=== PATIENT | male | born 1990 | race Caucasian/White ===

== ENCOUNTER 2019-08-27 16:01 | Emergency (ER) | payer BC ==
[2019-08-27] MEDS ORDERED: Morphine 10 MG/ML Syringe IVPUSH ONE ×2 (16:27→20:09)
[2019-08-27] MEDS ORDERED: Sodium Chloride 0.9% 1,000 ML IV ONE ×2 (16:27→18:48)
[2019-08-27] MEDS ORDERED: Piperacillin/Tazobactam 3.375 GM in Sodium Chloride 0.9% 50 ML IV ONE (16:28)
--- NOTE | 2019-08-27 17:36 | EDM.PDOC ---
Addendum entered and electronically signed by Tiara Amor MD 08/27/19 22 :27: EKG: st at 119 bpm. nml axis. nml intervals. no st elevation. Original Note: <Tiara Amor - Last Filed: 08/27/19 20:52> ED HPI GENERAL MEDICAL PROBLEM - General Chief Complaint: Skin Complaint Stated Complaint: INFECTION Time Seen by Provider: 08/27/19 16:08 - Related Data Allergies Allergy/AdvReac Type Severity Reaction Status Date / Time No Known Allergies Allergy Verified 08/27/19 16:13 Home Meds: Home Meds . [No Known Home Meds] 08/27/19 [History] ED ROS GENERAL - Review of Systems Review Of Systems: Comprehensive ROS is negative, except as noted in HPI. ED EXAM, SKIN/RASH Exam: See Below (see dictation) Course - Vital Signs Text/Narrative:: Care signed out to myself from Dr. Cole, please see his note for full details. He has already spoken with Dr. Lauren at [facility] at [place], transfer has been accepted, we are pending route of transfer based on CT. CT resulted and reviewed: pt with necrotizing fasciitis, will transfer by air. I spoke ER physician at [facility] to update on results. Insulin drip was started here. Transfer paperwork completed. Last Recorded V/S: Last Vital Signs Temp 36.2 C 08/27/19 20:25 Pulse 117 H 08/27/19 20:25 Resp 19 08/27/19 20:25 BP 127/61 08/27/19 20:25 Pulse Ox 96 08/27/19 20:25 - Orders/Labs/Meds Orders: Active Orders 24 hr Category Date Time Status Cardiac Monitoring [RC] CONTINUOUS Care 08/27/19 19:49 Active Communication Order [RC] STAT Care 08/27/19 19:48 Active Communication Order [RC] STAT Care 08/27/19 19:48 Active Communication Order [RC] STAT Care 08/27/19 19:48 Active Communication Order [RC] STAT Care 08/27/19 19:48 Active Communication Order [RC] STAT Care 08/27/19 19:49 Active EKG Documentation Completion [RC] STAT Care 08/27/19 20:21 Active Pelvis w Cont [CT] Stat Exams 08/27/19 16:26 Taken CULTURE BLOOD [BC] Stat Lab 08/27/19 17:16 Results CULTURE BLOOD [BC] Stat Lab 08/27/19 18:10 Received CULTURE WOUND [RM] Stat Lab 08/27/19 18:32 Received Blood Culture x2 Reflex Set [OM.PC] Stat Oth 08/27/19 17:42 Ordered Peripheral IV Insertion Adult [OM.PC] Stat Oth 08/27/19 19:49 Ordered Labs: Laboratory Tests 08/27/19 08/27/19 08/27/19 Range/Units 17:12 17:16 17:16 WBC 17.68 H (4.0-11.0) K/uL RBC 4.73 (4.50-5.90) M/uL Hgb 13.8 (13.0-17.0) g/dL Hct 39.3 (38.0-50.0) % MCV 83.1 (80.0-98.0) fL MCH 29.2 (27.0-32.0) pg MCHC 35.1 (31.0-37.0) g/dL RDW Std Deviation 42.7 (28.0-62.0) fl RDW Coeff of Ruben 14 (11.0-15.0) % Plt Count 232 (150-400) K/uL MPV 11.30 (7.40-12.00) fL Add Manual Diff YES Neutrophils % (Manual) 45 L (48.0-80.0) % Band Neutrophils % 23 % Lymphocytes % (Manual) 10 L (16.0-40.0) % Monocytes % (Manual) 19 H (0.0-15.0) % Metamyelocytes % 2 % Myelocytes % 1 % Nucleated RBC % 0.3 /100WBC Absolute Seg Neuts 8.0 H (1.4-5.7) Band Neutrophils # 4.1 Lymphocytes # (Manual) 1.8 (0.6-2.4) Monocytes # (Manual) 3.4 H (0.0-0.8) Absolute Metamyelocyte 0.4 Absolute Myelocytes 0.2 Nucleated RBCs 1 % Nucleated RBCs # 0 K/uL ESR (0-14) mm/hr VBG pH 7.47 H (7.31-7.41) VBG pCO2 30 L (35-45) mmHG VBG pO2 38 (30-40) mmHG VBG HCO3 22 (22-30) mEq/L VBG Total CO2 19 L (41-51) mmol/L VBG Base Excess -1.0 (-3.0-3.0) Lactate (0.20-2.00) mmol/L Sodium (136-148) mmol/L Potassium (3.5-5.1) mmol/L Chloride (98-107) mmol/L Carbon Dioxide (21.0-32.0) mmol/L BUN (7.0-18.0) mg/dL Creatinine (0.8-1.3) mg/dL Est Cr Clr Drug Dosing mL/min Estimated GFR (MDRD) ml/min Glucose (74-106) mg/dL POC Glucose (60-110) mg/dL Calcium (8.5-10.1) mg/dL Phosphorus (2.6-4.7) mg/dL Magnesium (1.8-2.4) mg/dL Total Bilirubin (0.2-1.0) mg/dL AST (15-37) IU/L ALT (14-63) IU/L Alkaline Phosphatase (46-116) U/L Creatine Kinase 88 (26-308) U/L C-Reactive Protein (0.00-0.90) mg/dL Total Protein (6.4-8.2) g/dL Albumin (3.4-5.0) g/dL Globulin (2.6-4.0) g/dL Albumin/Globulin Ratio (0.9-1.6) Urine Color Urine Appearance Urine pH (5.0-8.0) Ur Specific [place] (1.001-1.035) Urine Protein (NEGATIVE) mg/dL Urine Glucose (UA) (NEGATIVE) mg/dL Urine Ketones (NEGATIVE) mg/dL Urine Occult Blood (NEGATIVE) Urine Nitrite (NEGATIVE) Urine Bilirubin (NEGATIVE) Urine Urobilinogen (<2.0) EU/dL Ur Leukocyte Esterase (NEGATIVE) Urine RBC (0-2/HPF) Urine WBC (0-5/HPF) Ur Epithelial Cells (NONE-FEW) Urine Bacteria (NEGATIVE) Ketones (NEG) Blood Type Antibody Screen 08/27/19 08/27/19 08/27/19 Range/Units 17:16 17:16 17:16 WBC (4.0-11.0) K/uL RBC (4.50-5.90) M/uL Hgb (13.0-17.0) g/dL Hct (38.0-50.0) % MCV (80.0-98.0) fL MCH (27.0-32.0) pg MCHC (31.0-37.0) g/dL RDW Std Deviation (28.0-62.0) fl RDW Coeff of Ruben (11.0-15.0) % Plt Count (150-400) K/uL MPV (7.40-12.00) fL Add Manual Diff Neutrophils % (Manual) (48.0-80.0) % Band Neutrophils % % Lymphocytes % (Manual) (16.0-40.0) % Monocytes % (Manual) (0.0-15.0) % Metamyelocytes % % Myelocytes % % Nucleated RBC % /100WBC Absolute Seg Neuts (1.4-5.7) Band Neutrophils # Lymphocytes # (Manual) (0.6-2.4) Monocytes # (Manual) (0.0-0.8) Absolute Metamyelocyte Absolute Myelocytes Nucleated RBCs % Nucleated RBCs # K/uL ESR (0-14) mm/hr VBG pH (7.31-7.41) VBG pCO2 (35-45) mmHG VBG pO2 (30-40) mmHG VBG HCO3 (22-30) mEq/L VBG Total CO2 (41-51) mmol/L VBG Base Excess (-3.0-3.0) Lactate 5.7 H* (0.20-2.00) mmol/L Sodium 119 L* (136-148) mmol/L Potassium 4.9 (3.5-5.1) mmol/L Chloride 82 L (98-107) mmol/L Carbon Dioxide 19.3 L (21.0-32.0) mmol/L BUN 39 H (7.0-18.0) mg/dL Creatinine 1.3 (0.8-1.3) mg/dL Est Cr Clr Drug Dosing 86.57 mL/min Estimated GFR (MDRD) > 60.0 ml/min Glucose 521 H* (74-106) mg/dL POC Glucose (60-110) mg/dL Calcium 7.6 L (8.5-10.1) mg/dL Phosphorus (2.6-4.7) mg/dL Magnesium (1.8-2.4) mg/dL Total Bilirubin 1.1 H (0.2-1.0) mg/dL AST 62 H (15-37) IU/L ALT 40 (14-63) IU/L Alkaline Phosphatase 86 (46-116) U/L Creatine Kinase (26-308) U/L C-Reactive Protein (0.00-0.90) mg/dL Total Protein 6.2 L (6.4-8.2) g/dL Albumin 1.9 L (3.4-5.0) g/dL Globulin 4.3 H (2.6-4.0) g/dL Albumin/Globulin Ratio 0.4 L (0.9-1.6) Urine Color Urine Appearance Urine pH (5.0-8.0) Ur Specific [place] (1.001-1.035) Urine Protein (NEGATIVE) mg/dL Urine Glucose (UA) (NEGATIVE) mg/dL Urine Ketones (NEGATIVE) mg/dL Urine Occult Blood (NEGATIVE) Urine Nitrite (NEGATIVE) Urine Bilirubin (NEGATIVE) Urine Urobilinogen (<2.0) EU/dL Ur Leukocyte Esterase (NEGATIVE) Urine RBC (0-2/HPF) Urine WBC (0-5/HPF) Ur Epithelial Cells (NONE-FEW) Urine Bacteria (NEGATIVE) Ketones (NEG) Blood Type O POSITIVE Antibody Screen NEGATIVE 08/27/19 08/27/19 08/27/19 Range/Units 17:16 17:16 17:16 WBC (4.0-11.0) K/uL RBC (4.50-5.90) M/uL Hgb (13.0-17.0) g/dL Hct (38.0-50.0) % MCV (80.0-98.0) fL MCH (27.0-32.0) pg MCHC (31.0-37.0) g/dL RDW Std Deviation (28.0-62.0) fl RDW Coeff of Ruben (11.0-15.0) % Plt Count (150-400) K/uL MPV (7.40-12.00) fL Add Manual Diff Neutrophils % (Manual) (48.0-80.0) % Band Neutrophils % % Lymphocytes % (Manual) (16.0-40.0) % Monocytes % (Manual) (0.0-15.0) % Metamyelocytes % % Myelocytes % % Nucleated RBC % /100WBC Absolute Seg Neuts (1.4-5.7) Band Neutrophils # Lymphocytes # (Manual) (0.6-2.4) Monocytes # (Manual) (0.0-0.8) Absolute Metamyelocyte Absolute Myelocytes Nucleated RBCs % Nucleated RBCs # K/uL ESR 56 H (0-14) mm/hr VBG pH (7.31-7.41) VBG pCO2 (35-45) mmHG VBG pO2 (30-40) mmHG VBG HCO3 (22-30) mEq/L VBG Total CO2 (41-51) mmol/L VBG Base Excess (-3.0-3.0) Lactate (0.20-2.00) mmol/L Sodium (136-148) mmol/L Potassium (3.5-5.1) mmol/L Chloride (98-107) mmol/L Carbon Dioxide (21.0-32.0) mmol/L BUN (7.0-18.0) mg/dL Creatinine (0.8-1.3) mg/dL Est Cr Clr Drug Dosing mL/min Estimated GFR (MDRD) ml/min Glucose (74-106) mg/dL POC Glucose (60-110) mg/dL Calcium (8.5-10.1) mg/dL Phosphorus (2.6-4.7) mg/dL Magnesium (1.8-2.4) mg/dL Total Bilirubin (0.2-1.0) mg/dL AST (15-37) IU/L ALT (14-63) IU/L Alkaline Phosphatase (46-116) U/L Creatine Kinase (26-308) U/L C-Reactive Protein 20.40 H (0.00-0.90) mg/dL Total Protein (6.4-8.2) g/dL Albumin (3.4-5.0) g/dL Globulin (2.6-4.0) g/dL Albumin/Globulin Ratio (0.9-1.6) Urine Color Urine Appearance Urine pH (5.0-8.0) Ur Specific [place] (1.001-1.035) Urine Protein (NEGATIVE) mg/dL Urine Glucose (UA) (NEGATIVE) mg/dL Urine Ketones (NEGATIVE) mg/dL Urine Occult Blood (NEGATIVE) Urine Nitrite (NEGATIVE) Urine Bilirubin (NEGATIVE) Urine Urobilinogen (<2.0) EU/dL Ur Leukocyte Esterase (NEGATIVE) Urine RBC (0-2/HPF) Urine WBC (0-5/HPF) Ur Epithelial Cells (NONE-FEW) Urine Bacteria (NEGATIVE) Ketones NEGATIVE (NEG) Blood Type Antibody Screen 08/27/19 08/27/19 08/27/19 Range/Units 17:16 19:46 20:41 WBC (4.0-11.0) K/uL RBC (4.50-5.90) M/uL Hgb (13.0-17.0) g/dL Hct (38.0-50.0) % MCV (80.0-98.0) fL MCH (27.0-32.0) pg MCHC (31.0-37.0) g/dL RDW Std Deviation (28.0-62.0) fl RDW Coeff of Ruben (11.0-15.0) % Plt Count (150-400) K/uL MPV (7.40-12.00) fL Add Manual Diff Neutrophils % (Manual) (48.0-80.0) % Band Neutrophils % % Lymphocytes % (Manual) (16.0-40.0) % Monocytes % (Manual) (0.0-15.0) % Metamyelocytes % % Myelocytes % % Nucleated RBC % /100WBC Absolute Seg Neuts (1.4-5.7) Band Neutrophils # Lymphocytes # (Manual) (0.6-2.4) Monocytes # (Manual) (0.0-0.8) Absolute Metamyelocyte Absolute Myelocytes Nucleated RBCs % Nucleated RBCs # K/uL ESR (0-14) mm/hr VBG pH (7.31-7.41) VBG pCO2 (35-45) mmHG VBG pO2 (30-40) mmHG VBG HCO3 (22-30) mEq/L VBG Total CO2 (41-51) mmol/L VBG Base Excess (-3.0-3.0) Lactate (0.20-2.00) mmol/L Sodium (136-148) mmol/L Potassium (3.5-5.1) mmol/L Chloride (98-107) mmol/L Carbon Dioxide (21.0-32.0) mmol/L BUN (7.0-18.0) mg/dL Creatinine (0.8-1.3) mg/dL Est Cr Clr Drug Dosing mL/min Estimated GFR (MDRD) ml/min Glucose (74-106) mg/dL POC Glucose 444 H (60-110) mg/dL Calcium (8.5-10.1) mg/dL Phosphorus 2.6 (2.6-4.7) mg/dL Magnesium 2.7 H (1.8-2.4) mg/dL Total Bilirubin (0.2-1.0) mg/dL AST (15-37) IU/L ALT (14-63) IU/L Alkaline Phosphatase (46-116) U/L Creatine Kinase (26-308) U/L C-Reactive Protein (0.00-0.90) mg/dL Total Protein (6.4-8.2) g/dL Albumin (3.4-5.0) g/dL Globulin (2.6-4.0) g/dL Albumin/Globulin Ratio (0.9-1.6) Urine Color YELLOW Urine Appearance SLT CLOUDY Urine pH 6.0 (5.0-8.0) Ur Specific [place] <= 1.005 (1.001-1.035) Urine Protein NEGATIVE (NEGATIVE) mg/dL Urine Glucose (UA) >=1000 (NEGATIVE) mg/dL Urine Ketones TRACE H (NEGATIVE) mg/dL Urine Occult Blood LARGE H (NEGATIVE) Urine Nitrite NEGATIVE (NEGATIVE) Urine Bilirubin NEGATIVE (NEGATIVE) Urine Urobilinogen 4.0 H (<2.0) EU/dL Ur Leukocyte Esterase NEGATIVE (NEGATIVE) Urine RBC 4-7 (0-2/HPF) Urine WBC 0-2 (0-5/HPF) Ur Epithelial Cells OCCASIONAL (NONE-FEW) Urine Bacteria FEW (NEGATIVE) Ketones (NEG) Blood Type Antibody Screen Meds: Medications Discontinued Medications Generic Name Dose Route Start Last Admin Trade Name Freq PRN Reason Stop Dose Admin Sodium Chloride 1,000 mls @ 999 mls/hr 08/27/19 16:27 08/27/19 17:24 Normal Saline IV 08/27/19 17:27 999 mls/hr .BOLUS ONE Administration Clindamycin Phosphate 300 mg/ 52 mls @ 100 mls/hr 08/27/19 16:28 08/27/19 19: 29 Sodium Chloride IV 08/27/19 16:59 100 mls/hr ONETIME ONE Administration Piperacillin Sod/Tazobactam 50 mls @ 100 mls/hr 08/27/19 16:28 08/27/19 17:24 Sod 3.375 gm/ Sodium Chloride IV 08/27/19 16:57 100 mls/hr ONETIME ONE Administration Vancomycin HCl 1.5 gm/ Sodium 250 mls @ 167 mls/hr 08/27/19 16:27 08/27/19 20 :18 Chloride IV 08/27/19 17:56 167 mls/hr ONETIME ONE Administration Sodium Chloride 1,000 mls @ 999 mls/hr 08/27/19 18:48 08/27/19 20:22 Normal Saline IV 08/27/19 19:48 999 mls/hr .BOLUS ONE Administration Insulin Human Regular 100 unit 100 mls @ 16.32 mls/hr 08/27/19 20:00 20:41 / Sodium Chloride IV 0.1 units/kg/hr TITRATE NGOC 16.32 mls/hr Administration Protocol 0.1 UNITS/KG/HR Iopamidol 100 ml 08/27/19 19:25 08/27/19 19:25 Isovue Multipack-370 (76%) IVPUSH 08/27/19 19:26 100 ml ONETIME ONE Administration Morphine Sulfate 8 mg 08/27/19 16:27 08/27/19 18:18 Morphine IVPUSH 08/27/19 16:28 8 mg ONETIME ONE Administration Morphine Sulfate 6 mg 08/27/19 20:09 08/27/19 20:16 Morphine IVPUSH 08/27/19 20:10 6 mg ONETIME ONE Administration Sodium Chloride 10 ml 08/27/19 19:49 Saline Flush FLUSH ASDIRECTED PRN Keep Vein Open Sodium Chloride 2.5 ml 08/27/19 19:49 Saline Flush FLUSH ASDIRECTED PRN Keep Vein Open Sodium Chloride 10 ml 08/27/19 19:49 Normal Saline IV ASDIRECTED PRN IV Use Departure - Departure Time of Disposition: 20:52 Disposition: DC/Tfer to Acute Hospital 02 Condition: Serious Clinical Impression: Necrotizing fasciitis, Hyperglycemia due to type 2 diabetes mellitus - Discharge Information Referrals: PCP,None [Primary Care Provider] - Forms: ED Department Discharge Sepsis Event Note - Focused Exam Vital Signs: Vital Signs Temp Pulse Resp BP Pulse Ox 08/27/19 20:25 36.2 C 117 H 19 127/61 96 08/27/19 19:52 117 H 22 H 115/71 96 Date Exam was Performed: 08/27/19 Time Exam was Performed: 20:52 - My Orders Last 24 Hours: My Active Orders 08/27/19 16:26 Pelvis w Cont [CT] Stat 08/27/19 17:16 CULTURE BLOOD [BC] Stat 08/27/19 17:42 Blood Culture x2 Reflex Set [OM.PC] Stat 08/27/19 18:10 CULTURE BLOOD [BC] Stat 08/27/19 18:32 CULTURE WOUND [RM] Stat - Assessment/Plan Last 24 Hours: My Active Orders 08/27/19 16:26 Pelvis w Cont [CT] Stat 08/27/19 17:16 CULTURE BLOOD [BC] Stat 08/27/19 17:42 Blood Culture x2 Reflex Set [OM.PC] Stat 08/27/19 18:10 CULTURE BLOOD [BC] Stat 08/27/19 18:32 CULTURE WOUND [RM] Stat <Ashu Cole - Last Filed: 08/28/19 07:32> ED HPI GENERAL MEDICAL PROBLEM - General Source of Information: Reports: Patient History Limitations: Reports: No Limitations - History of Present Illness INITIAL COMMENTS - FREE TEXT/NARRATIVE: Patient is a 28-year-old male with a history of morbid obesity presenting with a chief complaint of right leg pain and swelling. Patient noticed the area started around the suprapubic part of his groin. Patient noticed this first on Thursday and have progressively worsened despite over the entirety of his proximal thigh. He notes some slight redness to the right thigh. Patient does report intermittent fevers but denies any nausea, vomiting. Denies any interventions. Nothing makes symptoms better. Patient denies any prior skin infections. Patient reports some drainage of pus. In addition to that documented in the HPI above, the additional ROS was obtained : Constitutional: Per HPI Eyes: Denies vision changes ENMT: Denies sore throat CV: Denies chest pain Resp: Denies SOB GI: Denies vomiting or diarrhea : Denies painful urination MSK: Denies recent trauma Skin: Per HPI Neuro: Denies new numbness or tingling or weakness Endocrine: Denies unexpected weight loss Heme: Denies bleeding disorders I have reviewed the triage vital signs Const: Obese in appearance, mildly anxious Eyes: PERRL, no conjunctival injection HENT: NCAT, Neck supple without meningismus CV: RRR, Warm, well-perfused extremities RESP: CTAB, Unlabored respiratory effort GI: soft, non-tender, non-distended, no masses MSK: No gross deformities appreciated Skin: Erythema and skin thickening present from the suprapubic area over the right proximal thigh and extending to the right lateral thigh. Neuro: Alert, language and literature division chair II-XII grossly intact. Sensation and motor function of extremities grossly intact. Psych: Appropriate mood and affect Assessment and plan Patient is a 28-year-old male with a complaint of skin infection. Patient tachycardic but afebrile. Patient demonstrates elevated lactate of 5.6. Patient also had elevated white blood cell count and elevated glucose. High concern for necrotizing infection based on appearance and laboratory abnormalities. Patient has elevated lactate, CRP, ESR. In addition, patient had elevated blood glucose with an anion gap but unlikely DKA at this time, as the patient is not acidotic and has no serum ketones. Anion gap may be due to elevated lactate. Patient had difficult IV access and therefore required central line for medication and fluid resuscitation. This delayed blood draws and IV fluid resuscitation. Patient given 30 cc/kg of IV fluids. Patient initiated on broad-spectrum antibiotics. Patient will be need to transfer to higher level of care as he is likely septic with necrotizing fasciitis. Case discussed with ER physician at [facility] who agreed to accept the patient. At the time of my signout, patient was in CT scan to evaluate extent of infection while flight was kept on standby. Patient was signed out to the overnight physician who will transfer the patient as soon as CT scan is complete. If the CT scan was negative for necrotizing fasciitis and was more indicative of a cellulitis, the patient would be transferred by ground. However, if CT scan demonstrates any evidence of necrotizing fasciitis, the patient will be transferred via air for emergent surgery. Case discussed with on-call general surgeon at [place], Dr. Mar, who agrees that the patient is too sick for operative evaluation and management here in [place]. He agrees that transfer is the best course of action for this patient. Critical Care Procedure Note Authorized and Performed by: Dr Cole Total critical care time: Approximately 45 minutes Due to a high probability of clinically significant, life threatening deterioration, the patient required my highest level of preparedness to intervene emergently and I personally spent this critical care time directly and personally managing the patient. This critical care time included obtaining a history; examining the patient; pulse oximetry; ordering and review of studies ; arranging urgent treatment with development of a management plan; evaluation of patient's response to treatment; frequent reassessment; and, discussions with other providers. This critical care time was performed to assess and manage the high probability of imminent, life-threatening deterioration that could result in multi-organ failure. It was exclusive of separately billable procedures and treating other patients and teaching time. Please see MDM section and the rest of the note for further information on patient assessment and treatment. right groin Pain Score (Numeric/FACES): 10 Past Medical History - Infectious Disease History Infectious Disease History: Reports: Chicken Pox - Past Surgical History HEENT Surgical History: Reports: Adenoidectomy, Tonsillectomy Social & Family History - Family History Family Medical History: Noncontributory - Tobacco Use Smoking Status *Q: Current Every Day Smoker Years of Tobacco use: 15 Packs/Tins Daily: 1 - Recreational Drug Use Recreational Drug Use: No ED ROS GENERAL - Review of Systems Review Of Systems: See Below ED SKIN PROCEDURES - Additional/Other Procedure(s) Other (Free Text) Procedure(s): Nternal Jugular Central Line Procedure Note INDICATION: Poor vascular access PROCEDURE VEST BACKER: Dr. Cole CONSENT: Consent was obtained from pt prior to the procedure. Indications, risks, and benefits were explained at length. PROCEDURE SUMMARY: A time out was performed. My hands were washed immediately prior to the procedure. I wore a surgical cap, mask with protective eyewear, full gown and sterile gloves throughout the procedure. The patient was placed in Trendelenburg position. RIGHT chest region was prepped using chlorhexidine scrub and draped in sterile fashion using a full drape and sterile probe cover employed. The Internal Jugular vein was identified using the ultrasound. Anesthesia was achieved over the vein using 1% lidocaine. Using real-time out of plane guidance, the introducer needle was inserted into the Internal Jugular vein under direct ultrasound visualization. Venous blood was withdrawn. The syringe was removed and a guidewire was advanced into the introducer needle. The guidewire was visualized in the Internal Jugular Vein by ultrasound. A small incision was made at the skin surface with a scalpel and the introducer needle was exchanged for a dilator over the guidewire. After appropriate dilation was obtained, the dilator was exchanged over the wire for a triple- lumen central venous cathete A sterile sorbaview shield was placed over the catheter at the insertion site. The patient tolerated the procedure without any hemodynamic compromise. At time of procedure completion, all ports aspirated and flushed properly. Post-procedure chest x-ray is pending at this time. Estimated blood loss is 5 cc. Sepsis Event Note - Evaluation Sepsis Screening Result: No Definite Risk - Focused Exam Date Exam was Performed: 08/28/19 Time Exam was Performed: 07:23
[2019-08-27 17:54] LABS: BLOOD UREA NITROGEN,BUN 39 mg/dL (7.0-18.0); CARBON DIOXIDE,CO2 19.3 mmol/L (21.0-32.0); CHLORIDE,CL 82 mmol/L (98-107); POTASSIUM,K 4.9 mmol/L (3.5-5.1)
[2019-08-27 18:01] LABS: SODIUM,NA 119 mmol/L (136-148)
[2019-08-27 18:02] LABS: GLUCOSE RANDOM 521 mg/dL (74-106)
--- NOTE | 2019-08-27 18:46 | CR ---
Chest: Portable view of the chest was obtained. Comparison: No previous chest x-ray. Right jugular line is noted. Distal tip is difficult to see but appears to lie within the right atria. Lungs are clear with no acute parenchymal change. No pneumothorax is seen. Bony structures are unremarkable. Impression: 1. Right jugular line. Tip difficult to see but appears to lie within the right atria. 2. Nothing acute is otherwise seen on portable chest x-ray. Diagnostic code #3 This report was dictated in [place] Standard Time
[2019-08-27] MEDS ORDERED: Iopamidol 755 MG/ML 200 ML Multipack Bottle IVPUSH ONE (19:25)
[2019-08-27] MEDS ORDERED: Sodium Chloride 0.9% 10 ML Syringe FLUSH PRN (19:49)
[2019-08-27] MEDS ORDERED: Sodium Chloride 0.9% 2.5 ML Syringe FLUSH PRN (19:49)
[2019-08-27] MEDS ORDERED: Sodium Chloride 0.9% 10 ML SDV IV PRN (19:49)
--- NOTE | 2019-08-27 19:52 | CT ---
CT right femur Technique: Multiple axial sections through the right hip and femur were obtained. Findings: Diffuse subcutaneous air is seen within the fat which starts above the pelvis and is located both anterior lateral and posterior. Posteriorly this extends to the midline. Continued subcutaneous air is noted around the right hip and extends down the right thigh to slightly below the knee. Low density is noted within the lateral soft tissues which is slightly superior to the knee most likely representing subcutaneous abscess measuring 4.8 cm x 1.7 cm. Diffuse skin thickening is seen. No definite involvement of the muscles are seen at this time. No bony erosion is seen. Impression: 1. Diffuse subcutaneous air as noted above. Low density finding within the lateral soft tissues within the subcutaneous fat located slightlyabove the knee compatible with abscess. Diffuse skin thickening is also noted. Findings are compatible with clinical history of necrotizing fasciitis. 2. No bony abnormality is appreciated. No muscle abnormality is appreciated at this time. Diagnostic code #5 This report was dictated in [place] Standard Time
--- NOTE | 2019-08-29 11:26 | CT ---
CT pelvis Technique: Multiple axial sections were obtained from above the iliac crests inferiorly through the pubic symphysis. Study is centered to the right side. Intravenous contrast not utilized. Findings: Diffuse subcutaneous air is seen within the fat which extends anterior lateral and posteriorly. This begins above the pelvis. No air seen within the intrapelvic area. No intrapelvic abnormality is seen. No bony erosions are noted. Impression: 1. Diffuse air within the subcutaneous fat beginning above the pelvis and extending inferiorly. 2. No intrapelvic abnormality or bony abnormality is seen. Diagnostic code #3 This report was dictated in [place] Standard Time MTDD
== END 2019-08-27 21:02 ==
LOC: MW.ED 16:01
DX: E11.65 Type 2 diabetes mellitus with hyperglycemia (principal); M72.6 Necrotizing fasciitis; F17.210 Nicotine dependence, cigarettes, uncomplicated
CPT/HCPCS: 36415; 36556; 71045; 72193; 73701; 80053; 81001; 82009; 82550; 82803; 82962; 83605; 83735; 84100; 85025; 85652; 86140; 86850; 86900; 86901; 87040; 87070; 87077; 87186; 93005; 96365; 96367; 96375; 99291; J1815; J2270; J2543; J3370; J3490; J7030; J7050; Q9967